=== PATIENT | female | born 2000 | race African-American/Black ===

== ENCOUNTER 2020-01-22 23:56 | Emergency (ER) | payer BC, OTHER ==
[2020-01-23] MEDS ORDERED: SODIUM CHLORIDE 0.9% (FLUSH) 10 ML SYG IV PRN (00:02)
--- NOTE | 2020-01-23 00:14 | ED.PDOC ---
History of Present Illness - General Time Seen by Provider: 01/23/20 00:02 Source: patient, RN notes reviewed, Vital Signs reviewed, old records Exam Limitations: no limitations - History of Present Illness Initial Comments: 19 yo nullparous female comes in with 6 weeks of vaginal bleeding. has a long hx of abnormal menstraul cycle, was on depot for a year, which controlled it but due to financial issues stopped getting it 6 months ago. Last dose was in April. Denies cp, dizziness, palpations, syncope. Does have some shortness of breath with activity, fatigue. no hx of blood transfusions. has had pelvic US in past was told she had ovarian cyst, but no other findings Timing/Duration: constant Quality: cramping Allergies/Adverse Reactions: Allergies NO KNOWN ALLERGY Allergy (Verified 01/23/20 00:56) Home Medications: Ambulatory Orders Ferrous Sulfate 325 mg PO DAILY #30 tab 01/23/20 Norgestimate-Ethinyl Estradiol [Urg-Mm-Qtbboata 0.18/0.215/0.25 mg-25 Mcg] 1 tab PO DAILY #1 pack 01/23/20 Review of Systems - Review of Systems Constitutional: States: malaise. Denies: chills, fever EENTM: Denies: blurred vision, double vision Respiratory: States: short of breath. Denies: cough, stridor Cardiology: Denies: chest pain, palpitations, syncope Gastrointestinal/Abdominal: States: abdominal pain - intermittent cramping in pelvis. Denies: nausea, vomiting Genitourinary: Denies: frequency, hematuria Musculoskeletal: Denies: back pain, muscle pain Skin: Denies: rash Neurological: Denies: headache, numbness, paresthesia, tremors, weakness Endocrine: Denies: unexplained weight gain, unexplained weight loss Hematologic/Lymphatic: States: anemia. Denies: blood clots, easy bleeding, easy bruising Past Medical History (General) - Patient Medical History Hx Seizures: No Hx Stroke: No Hx Dementia: No Hx Asthma: No Hx of COPD: No Hx Cardiac Disorders: No Hx Congestive Heart Failure: No Hx Pacemaker: No Hx Hypertension: No Hx Thyroid Disease: No Hx Diabetes: No Hx Gastroesophageal Reflux: No Hx Renal Disease: No Hx Cancer: No Hx of HIV: No Hx Hepatitis B: No Hx Hepatitis C: No Hx MRSA: No Hx Other PMH: Yes - pernicous anemia - Social History Hx Tobacco Use: No Hx Chewing Tobacco Use: No Hx Alcohol Use: No Hx Substance Use: No Hx Substance Use Treatment: No Hx Depression: No Feels Threatened In Home Enviroment: No Family Medical History - Family History Mother Family History: Unknown Physical Exam - Physical Exam General Appearance: Alert, Comfortable, No apparent distress, Well Developed, Well Groomed, Well Hydrated, Well Nourished Eyes, Ears, Nose, Throat Exam: PERRL/EOMI, normal ENT inspection Neck: non-tender, full range of motion, supple, normal inspection Cardiovascular/Respiratory: regular rate, rhythm, no M/R/G, normal peripheral pulses, no JVD, normal breath sounds, no respiratory distress Gastrointestinal/Abdominal: normal bowel sounds, non tender, soft, no organomegaly, no pulsatile mass Rectal Exam: deferred Pelvic Exam: external exam normal, speculum exam normal, bimanual exam normal, other - mild blod oozing from cervical os, normal manual exam, no cmt. Back Exam: normal inspection, no CVA tenderness, no vertebral tenderness Extremity: normal range of motion, non-tender, normal inspection, no pedal edema, no calf tenderness, normal capillary refill Neurologic: no motor/sensory deficits, alert, normal mood/affect, oriented x 3 Skin Exam: normal color, warm/dry Progress - Progress Progress: 01/23/20 00:57 01/23/20 00:02 Pelvic Exam Assist ONCE Sodium Chloride 0.9% (Flush) [Saline Flush Syringe] 10 ml IV PRN PRN 01/23/20 00:03 IV Care:Saline Lock per Protoc QSHIFT Laboratory Results WBC 10.9 K/mm3 (4.8-10.8) H 01/23/20 00:20 RBC 5.03 M/mm3 (4.20-5.40) 01/23/20 00:20 Hgb 13.2 gm/dL (12.0-16.0) 01/23/20 00:20 Hct 38.6 % (36.0-47.0) 01/23/20 00:20 MCV 76.8 fl (81.0-99.0) L 01/23/20 00:20 MCH 26.3 pg (27.0-31.0) L 01/23/20 00:20 MCHC 34.3 g/dL (33.0-37.0) 01/23/20 00:20 RDW 15.4 % (11.5-14.5) H 01/23/20 00:20 Plt Count 538 K/mm3 (130-400) H 01/23/20 00:20 MPV 6.6 fl (7.40-10.4) L 01/23/20 00:20 Absolute Neuts (auto) 7.50 K/uL (1.8-6.8) H 01/23/20 00:20 Absolute Lymphs (auto) 2.50 K/uL (1.0-3.4) 01/23/20 00:20 Absolute Monos (auto) 0.70 K/uL (0.2-0.8) 01/23/20 00:20 Absolute Eos (auto) 0.10 K/uL (0.0-0.4) 01/23/20 00:20 Absolute Basos (auto) 0.10 K/uL (0.0-0.1) 01/23/20 00:20 Neutrophils % 68.7 % (42.0-78.0) 01/23/20 00:20 Lymphocytes % 23.4 % (20.0-50.0) 01/23/20 00:20 Monocytes % 6.3 % (2.0-9.0) 01/23/20 00:20 Eosinophils % 1.0 % (1.0-5.0) 01/23/20 00:20 Basophils % 0.6 % (0.0-2.0) 01/23/20 00:20 Sodium 139 mmol/L (135-145) 01/23/20 00:20 Potassium 3.7 mmol/L (3.6-5.0) 01/23/20 00:20 Chloride 102 mmol/L (101-111) 01/23/20 00:20 Carbon Dioxide 25 mmol/L (21-31) 01/23/20 00:20 Anion Gap 15.7 (12-18) 01/23/20 00:20 BUN 13 mg/dL (7-18) 01/23/20 00:20 Creatinine 0.77 mg/dL (0.6-1.3) 01/23/20 00:20 BUN/Creatinine Ratio 16.9 (10-20) 01/23/20 00:20 Random Glucose 91 mg/dL (70-105) 01/23/20 00:20 Serum Osmolality 277.2 mOsm/L (275-295) 01/23/20 00:20 Calcium 9.5 mg/dL (8.4-10.2) 01/23/20 00:20 Total Bilirubin 0.5 mg/dL (0.2-1.0) 01/23/20 00:20 AST 25 IU/L (10-42) 01/23/20 00:20 ALT 25 IU/L (10-60) 01/23/20 00:20 Alkaline Phosphatase 105 IU/L (42-121) 01/23/20 00:20 Serum Total Protein 8.5 gm/dL (6.4-8.2) H 01/23/20 00:20 Albumin 4.6 g/dl (3.2-5.5) 01/23/20 00:20 Globulin 3.9 gm/dL (2.3-3.5) H 01/23/20 00:20 Albumin/Globulin Ratio 1.2 (1.1-1.9) 01/23/20 00:20 Serum HCG, Qual Negative (NEGATIVE) 01/23/20 00:20 Urine Color Yellow (Yellow) 01/23/20 00:30 Urine Appearance Sl cloudy (Clear) 01/23/20 00:30 Urine pH 6.5 (4.5-7.8) 01/23/20 00:30 Ur Specific [place] 1.025 (1.005-1.030) 01/23/20 00:30 Urine Protein Negative mg/dL 01/23/20 00:30 Urine Glucose (UA) Negative mg/dL (Negative) 01/23/20 00:30 Urine Ketones Negative mg/dL (NEGATIVE) 01/23/20 00:30 Urine Blood Large (Negative) H 01/23/20 00:30 Urine Nitrite Negative 01/23/20 00:30 Urine Bilirubin Negative (NEGATIVE) 01/23/20 00:30 Urine Urobilinogen 0.2 mg/dL (0.2-1.0) 01/23/20 00:30 Ur Leukocyte Esterase Negative (Negative) 01/23/20 00:30 Urine RBC 20-30 /hpf H 01/23/20 00:30 Urine WBC 0-1 /hpf 01/23/20 00:30 Ur Epithelial Cells 1-3 /hpf 01/23/20 00:30 Urine Bacteria 0 01/23/20 00:30 - Results/Orders Results/Orders: The data reviewed when caring for this patient included: nurse notes, prior records, etc. The history and assessments from nurses notes were reviewed and considered, and the patient's home medication list was also reviewed and considered. My assessment and the results of testing completed here in the ED were discussed with the patient/family. All questions were answered, and they express understanding of my assessment and the plan. They have been instructed to return if their symptoms worsen, and have been asked to follow up with their primary care physician or electroencephalographic technician to recheck today's presenting complaint. return precautions given. I have reviewed medication, benefits, alternatives and side effects. Patient has no family hx of self hx of bood clots, non smoker. Patient decided to proceed with medication. Salud Erazo DO #[id number] Departure - Departure Clinical Impression: Dysfunctional uterine hemorrhage Menorrhagia Qualifiers: Menorrhagia type: with irregular cycle Qualified Code(s): N92.1 - Excessive and frequent menstruation with irregular cycle Time of Disposition: 00:44 Disposition: Discharge to Home or Self Care Condition: Fair Instructions: Absent or Irregular Periods, Heavy Periods (DC), Bleeding Between Periods Prescriptions: Ferrous Sulfate 325 mg PO DAILY #30 tab Norgestimate-Ethinyl Estradiol [Lru-Cr-Qtzgfeik 0.18/0.215/0.25 mg-25 Mcg] 1 tab PO DAILY #1 pack Home Medications: Ambulatory Orders Ferrous Sulfate 325 mg PO DAILY #30 tab 01/23/20 Norgestimate-Ethinyl Estradiol [Cbx-La-Rwgktydi 0.18/0.215/0.25 mg-25 Mcg] 1 tab PO DAILY #1 pack 01/23/20
[2020-01-23 00:56] VITALS: O2SAT 100
[2020-01-23 01:02] VITALS: BP 126/71; TEMP 97.9
== END 2020-01-23 01:01 | disposition home or self-care (01) ==
LOC: ER 23:56
DX: N93.8 Other specified abnormal uterine and vaginal bleeding (principal); N92.1 Excessive and frequent menstruation with irregular cycle